=== PATIENT | female | born 1995 | race Caucasian/White ===

== ENCOUNTER 2019-03-16 12:30 | Emergency (ER) | payer MEDICAID ==
[~2019-03-16] VITALS: Ht 157.5 cm; Wt 96.2 kg
[2019-03-16 12:35] VITALS: Ht 157.5 cm; Wt 96.2 kg
[2019-03-16 20:25] VITALS: BP 112/64
== END 2019-03-16 20:25 | disposition home or self-care (01) ==
LOC: ED 12:30
DX: M51.36 Other intervertebral disc degeneration, lumbar region (principal); N83.201 Unspecified ovarian cyst, right side
CPT/HCPCS: J1885; J3010; Q0162